=== PATIENT | male | born 1990 | race American Indian/Alaskan Native ===

== ENCOUNTER 2022-02-11 12:16 | Emergency (ER) | payer SELFPAY ==
[2022-02-11] MEDS ORDERED: fentaNYL 100 MCG/2 ML INJ IV ONE ×2 (13:17→14:07)
--- NOTE | 2022-02-11 13:23 | Emergency Department Report ---
ED Upper Extremity Inj HPI - General Chief Complaint: Extremity Injury, Upper Stated Complaint: DISLOCATED LT SHOULDER Time Seen by Provider: 02/11/22 13:10 Source: patient, EMS Mode of arrival: Stretcher Limitations: No Limitations - History of Present Illness Initial Comments: 31 yo M with h/o chronic left shoulder dislocation who present with an episode of dislocation that occurred about few hours ago as he was trying to fiber picker his daughter and feed. Pt called EMS and was given pain medication. Pt reports that he some times have to replace the dislocation himself but could not do this however because of the pain. He says he could not lift his shoulder or move it in any direction without pain. No other modifying or associated factors reported . - Related Data Previous Rx's Medication Instructions Recorded Last Taken Type Cyclobenzaprine [Flexeril] 10 mg PO TID PRN 5 Days #15 tab NS 02/11/22 Unknown Rx Ketorolac [Toradol] 10 mg PO Q6H PRN 5 Days #20 tab NS 02/11/22 Unknown Rx Allergies Allergy/AdvReac Type Severity Reaction Status Date / Time No Known Allergies Allergy Verified 02/11/22 12:58 ED Review of Systems ROS: Stated complaint: DISLOCATED LT SHOULDER Other details as noted in HPI Comment: All other systems reviewed and negative Musculoskeletal: arthralgia, myalgia, other (left shoulder pain ) ED Past Medical Hx - Social History Smoking Status: Never Smoker Substance Use Type: None - Medications Home Medications: Home Medications Medication Instructions Recorded Confirmed Last Taken Type Cyclobenzaprine [Flexeril] 10 mg PO TID PRN 5 Days #15 tab NS 02/11/22 Unknown Rx Ketorolac [Toradol] 10 mg PO Q6H PRN 5 Days #20 tab NS 02/11/22 Unknown Rx ED Physical Exam - General Limitations: No Limitations General appearance: alert, in distress (due to pain ), other (obvious deformity but unusual the usual considering that it was chronic) - Head Head exam: Present: normal inspection - Eye Eye exam: Present: normal appearance - ENT ENT exam: Present: normal exam, normal orophraynx, mucous membranes moist - Neck Neck exam: Present: normal inspection, full ROM. Absent: tenderness, meningismus - Respiratory Respiratory exam: Present: normal lung sounds bilaterally. Absent: respiratory distress, accessory muscle use - Cardiovascular Cardiovascular Exam: Present: regular rate, normal rhythm, normal heart sounds - GI/Abdominal GI/Abdominal exam: Present: soft, normal bowel sounds. Absent: distended, tenderness - Expanded Upper Extremity Exam Right General: Present: other (noted with obvious deformity with tenderness to palpation ) Shoulder Exam: Present: tenderness (noted with obvious deformity with tenderness to palpation), deformity, dislocation, tenderness over AC joint, other Upper Arm exam: Present: normal inspection, tenderness Elbow exam: Present: normal inspection, full ROM. Absent: tenderness Forearm Wrist exam: Present: normal inspection, full ROM. Absent: deformity Hand Wrist exam: Present: normal inspection, full ROM. Absent: tenderness Neuro motor exam: Present: wrist extension intact, thumb opposition intact, thumb IP flexion intact, thumb adduction intact, fingers 2-5 abduction intact Neurosensory exam: Present: 2-point discrimination, radial nerve intact, ulnar nerve intact, median nerve intact Vascular: Present: pulse deficit brachial art. Absent: vascular compromise - Back Exam Back exam: Present: normal inspection - Neurological Exam Neurological exam: Present: alert, oriented X3 - Psychiatric Psychiatric exam: Present: normal affect, normal mood - Skin Skin exam: Present: warm, intact, normal color ED Course Vital Signs 02/11/22 02/11/22 02/11/22 12:35 12:59 13:28 Temperature 98.4 F 98.9 F Pulse Rate 60 60 88 Respiratory 18 18 17 Rate Blood Pressure 132/60 Blood Pressure 138/90 127/66 [Left] O2 Sat by Pulse 99 99 99 Oximetry - Reevaluation(s) Reevaluation #1: 02/11/22 13:27 here with likely left shoulder dislocation-- with h/o chronic dislocation so will go ahead and order xray and given fentanyl 50 mcg IV x1--we will follow-up on the x-ray for possible reduction afterward Reevaluation #2: 02/11/22 14:29 Xray of the left shoulder showed anterior dislocation without fracture. - Orthopedic Joint Reduction Joint #1 Consent Obtained: verbal consent Time Out Performed: Yes Side: left Joint Reduction Location: shoulder Analgesia: moderate sedation Shoulder Technique Used (if applicable): traction/counter-traction (with massage) Post-Reduction Neuro Exam: intact Post-Reduction Vascular Exam: intact Post Reduction X-Ray Obtained: Yes Post Reduction X-Ray Results: reduced Splint Applied: Yes Patient Tolerated Procedure: well Critical care attestation.: If time is entered above; I have spent that time in minutes in the direct care of this critically ill patient, excluding procedure time. ED Disposition Clinical Impression: Left shoulder pain Qualifiers: Chronicity: chronic Qualified Code(s): M25.512 - Pain in left shoulder Disposition: 01 HOME / SELF CARE / HOMELESS Is pt being admited?: No Does the pt Need Aspirin: No Condition: Stable Instructions: How to Use Cold Therapy, [id number], Shoulder Pain, [id number] Additional Instructions: Leave your shoulder immobilization in place until your pain resolved or has to discontinue by your doctor Take your pain medication and muscle relaxant as prescribed to help your pain It is important that you call and follow up with your doctor in the next 3-5 days for progress Please do not hesitate to call or return to ED if your symptoms worsen Prescriptions: Cyclobenzaprine [Flexeril] 10 mg PO TID PRN 5 Days #15 tab NS PRN Reason: Muscle Spasm Ketorolac [Toradol] 10 mg PO Q6H PRN 5 Days #20 tab NS PRN Reason: Pain Referrals: DEANA VICTOR MD [Staff Physician] - 3-5 Days Time of Disposition: 14:37
--- NOTE | 2022-02-11 13:48 | XRay Report ---
Left shoulder 3 views INDICATION: Dislocation FINDINGS: There is anterior inferior dislocation of the left shoulder. No acute fractures seen. AC norma int appears normal IMPRESSION: Left anterior inferior dislocation of the humeral head Signer Name: Larry Mendenhall MD Signed: 02/11/2022 1:43 PM Workstation Name: [id number]
[2022-02-11] MEDS ORDERED: MIDAZOLAM 5 MG/5 ML INJ MDV IV ONE (14:14)
[2022-02-11] MEDS ORDERED: MIDAZOLAM 2 MG/2 ML INJ IV SCH (14:30)
[2022-02-11] MEDS ORDERED: MIDAZOLAM 5 MG/5 ML INJ MDV IV SCH (14:30)
--- NOTE | 2022-02-11 14:59 | XRay Report ---
LEFT SHOULDER 3 VIEW(S) INDICATION / CLINICAL INFORMATION: post reduction COMPARISON: None available. FINDINGS: BONES / JOINT(S): There is appropriate reduction of the left glenohumeral joint. No significant arthr itis. SOFT TISSUES: No significant abnormality. ADDITIONAL FINDINGS: None. Signer Name: Giuliano Noe DO Signed: 02/11/2022 2:54 PM Workstation Name: [id number]
[2022-02-11] MEDS ORDERED: MIDAZOLAM 5 MG/5 ML INJ MDV IV NR (15:00)
[2022-02-11 15:30] VITALS: BP 128/86
== END 2022-02-11 15:30 | disposition home or self-care (01) ==
LOC: ED 12:16
DX: M25.512 Pain in left shoulder (principal)
CPT/HCPCS: 23650; 73030; 96374; 96375; 96376; 99284; J2250; J3010